=== PATIENT | male | born 1990 | race Two or more races ===

== ENCOUNTER 2021-10-10 12:14 | Emergency (ER) | payer SELFPAY ==
[~2021-10-10] VITALS: Ht 180.3 cm; Wt 117.2 kg
--- NOTE | 2021-10-10 13:19 | PHYS DOC ---
Past Medical History Past Surgical History: No Surgical History Smoking Status: Former Smoker Alcohol Use: Occasionally General Adult EDM: Chief Complaint: MULTIPLE TRAUMA/FALL HPI: HPI: Is sittingPatient is a 31-year-old male who presents to the emergency department following a fall. Patient reports that 30 minutes prior to ER arrival he fell off a 9 foot ladder and reports that he follows up with his hands and his right knee did hit one of the steps of the ladder. He denies loss of consciousness, neck, head, back pain. He does have swelling and abrasion to his right knee. He rates his pain 8 out of 10. No treatment prior to arrival. He is unsure of his last tetanus shot. Review of Systems: Review of Systems: 14 body systems of the review of systems have been reviewed. See HPI for pertinent positive and negative responses, otherwise all other systems are negative, nonpertinent or noncontributory Heart Score: C/O Chest Pain: N/A Risk Factors: Risk Factors: DM, Current or recent (<one month) smoker, HTN, HLP, family history of CAD, obesity. Risk Scores: Score 0 - 3: 2.5% MACE over next 6 weeks - Discharge Home Score 4 - 6: 20.3% MACE over next 6 weeks - Admit for Clinical Observation Score 7 - 10: 72.7% MACE over next 6 weeks - Early Invasive Strategies Allergies: Allergies: Allergies Coded Allergies Type Severity Reaction Last Updated Verified No Known Drug Allergies 10/10/21 No Physical Exam: PE: Constitutional: Well developed, well nourished, no acute distress, non-toxic appearance. [] HENT: Normocephalic, atraumatic, bilateral external ears normal, oropharynx moist, no oral exudates, nose normal. [] Eyes: PERRL, EOMI, conjunctiva normal, no discharge. [] Neck: Normal range of motion, no bony spinal tenderness, no step-offs or deformities, supple, no stridor. [] Cardiovascular:Heart rate regular rhythm, no murmur [] Lungs & Thorax: Bilateral breath sounds clear to auscultation, no chest wall pain with palpation [] Abdomen: Bowel sounds normal, soft, no tenderness, no masses, no pulsatile ma sses. [] Skin: Warm, dry, no erythema, no rash. [] Back: No bony spinal tenderness, normal range of motion Extremities: No tenderness, no cyanosis, no clubbing, ROM intact, no edema, no pelvic or hip pain with palpation. Right knee: Swelling noted to right knee, small abrasion noted to anterior aspect of right knee, range of motion intact, neuro intact, no crepitus. [] Neurologic: Alert and oriented X 3, normal motor function, normal sensory function, no focal deficits noted. [] Psychologic: Affect normal, judgement normal, mood normal. [] Current Patient Data: Vital Signs: Vital Signs Date Time Temp Pulse Resp B/P (MAP) Pulse Ox O2 Delivery O2 Flow Rate FiO2 10/10/21 12:19 97.9 76 21 153/90 (111) 95 Room Air 97.9 EKG: EKG: [] Radiology/Procedures: Radiology/Procedures: [] Course & Med Decision Making: Course & Med Decision Making Pertinent Labs and Imaging studies reviewed. (See chart for details) [] Patient presents to the emergency department following a fall off of a 9 foot ladder. Patient denies hitting his head, loss of consciousness, neck/head/back pain. Only complaint of pain is located to his right knee. Steele head injury score shows no CT is not necessary as he is not having a headache, vomiting, alcohol or drug intoxication, confusion or seizure or visible trauma above the clavicle. An x-ray was performed of patient's right knee and tib-fib. X-ray showed no acute findings. Tetanus updated in the ER. Patient's knee placed in Julian wrap. He was educated on the rice protocol. Advised to take anti-inflammatory medications at home. I discussed with patient all findings and diagnostic testing as well as the need to follow-up with PCP for further evaluation and treatment or return to the ER if any new or worsening symptoms. Strict return precautions were also discussed at length. Patient voiced understanding and agreement with the plan. Patient is hemodynamically stable at the time of disposition. Jina Disclaimer: Jina Disclaimer: This electronic medical record was generated, in whole or in part, using a voice recognition dictation system. Departure Departure Impression: Primary Impression: Knee sprain Qualified Codes: S83.8X1A - Sprain of other specified parts of right knee, initial encounter Additional Impression: Fall Qualified Codes: W19.XXXA - Unspecified fall, initial encounter Disposition: HOME / SELF CARE / HOMELESS Condition: GOOD Patient Instructions: TRACI - Routine Care for Injuries Additional Instructions: You were seen in the emergency department following a fall. X-rays were performed of your right knee and lower leg and they showed no acute fractures. Your knee was placed in Julian wrap. Your tetanus was also updated..You were seen in the emergency department today for a musculoskeletal problem that will likely improve over time. Your symptoms may be improved by something called the rice protocol. This is rest, ice, compression, elevation. Please follow-up when doing intense exercises that may make the pain worse. Sometimes gentle stretching can provide relief, but be careful to injury. It is important to perform gentle range of motion exercises to prevent stiff joints and chronic pain. Use ice packs over the affected areas to help decrease your pain. For the first 24 hours you can apply ice 20 minutes on 20 minutes off for 4 times per day. Sometimes compression such as the use of an Julian wrap can help with the swelling. You may also elevate the affected area to help with the swelling. You can take Tylenol and/or ibuprofen for your pain. For your abrasions on your knee, please keep these clean and dry. You can apply Polysporin or bacitracin ointment on to the areas with a Band-Aid. Follow-up with your primary care provider on Tuesday. Return to the emergency department if you develop worsening of your pain, increased swelling, decreased range of motion, inability to ambulate or bear weight or decrease sensation in your extremity. BRODERICK SILVER APRN Oct 10, 2021 13:18
--- NOTE | 2021-10-10 13:27 | RAD ---
EXAM: Right knee, 3 views; right tibia and fibula, 2 views. HISTORY: Fall. COMPARISON: None. FINDINGS: 3 views of the right knee and 2 views of the right tibia and fibula are obtained. There is no fracture, dislocation or subluxation. There is a small benign bone island within the medial femora l condyle. There is no joint effusion. There is no suspicious lytic or sclerotic osseous lesion. Ther e is no periosteal reaction. The ankle mortise is intact. IMPRESSION: No acute osseous finding. Electronically signed by: Alannah Sims MD (10/10/2021 1:24 PM) [facility]
[2021-10-10] MEDS ORDERED: HYDROcodone/APAP 5/325MG 1 TAB TABLET PO ONE (13:30)
[2021-10-10 13:38] VITALS: BP 141/83
[2021-10-10] MEDS ORDERED: DIPHTH,PERTUSS(ACELL),TET TOX 0.5 ML DISP.SYRIN. VAX IM ONE (14:00)
== END 2021-10-10 14:10 | disposition home or self-care (01) ==
LOC: ER 12:14
DX: S83.8X1A Sprain of other specified parts of right knee, initial encounter (principal); W11.XXXA Fall on and from ladder, initial encounter; Y93.89 Activity, other specified; Y92.89 Other specified places as the place of occurrence of the external cause; Y99.8 Other external cause status
CPT/HCPCS: 73562; 73590; 90471; 90715; 99285; A6450